=== PATIENT | male | born 1985 | race African-American/Black ===

== ENCOUNTER 2019-06-06 07:21 | Emergency (ER) | payer OTHER ==
[~2019-06-06] VITALS: Ht 188 cm; Wt 90.9 kg
[2019-06-06] MEDS ORDERED: LIDOcaine 1% W/epiNEPHrine 1:100,000 20ml vial SQ ONE (07:40)
[2019-06-06 08:29] VITALS: BP 141/81
== END 2019-06-06 08:31 | disposition home or self-care (01) ==
LOC: ER 07:22
DX: S41.111A Laceration without foreign body of right upper arm, initial encounter (principal); W26.8XXA Contact with other sharp object(s), not elsewhere classified, initial encounter; Y93.89 Activity, other specified; Y92.89 Other specified places as the place of occurrence of the external cause; Y99.8 Other external cause status
CPT/HCPCS: 12002; 99283

== ENCOUNTER 2019-06-08 17:49 | Emergency (ER) | payer OTHER ==
[~2019-06-08] VITALS: Ht 188 cm; Wt 91.0 kg
[2019-06-08 17:59] VITALS: BP 137/95
== END 2019-06-08 19:02 | disposition home or self-care (01) ==
LOC: ER 17:50
DX: S41.111D Laceration without foreign body of right upper arm, subsequent encounter (principal); R60.0 Localized edema; X58.XXXD Exposure to other specified factors, subsequent encounter
CPT/HCPCS: 99283

== ENCOUNTER 2023-12-26 18:44 | Emergency (ER) | payer OTHER ==
[~2023-12-26] VITALS: Ht 188 cm; Wt 130.0 kg
[2023-12-26 18:45] VITALS: BP 140/99; PULSE 93; RESP 16; TEMP 98.6; O2SAT 100
== END 2023-12-26 19:14 ==
LOC: ER 18:45
DX: F10.129 Alcohol abuse with intoxication, unspecified; Y90.9 Presence of alcohol in blood, level not specified
CPT/HCPCS: 99283